=== PATIENT | male | born 1940 | race Caucasian/White ===

== ENCOUNTER 2024-04-12 16:04 | Inpatient (IN) | payer MEDICARE, SELFPAY ==
[2024-04-12] VITALS (17 sets, daily range): BP systolic 103–164; BP diastolic 48–93; BMI 35.5; BMI 33.8
[2024-04-12 07:36] LABS: % Basophils 0.4 % (0-2); % Eosinophils 0.4 % (0-6); % Immature Granulocytes 0.4 % (0-0.5); % Lymphocytes 14.9 % (20.5-51.1); % Monocytes 6.9 % (1.7-9.3); Absolute Lymphocytes 1.2 10^3/uL (1.2-3.4); Absolute Monocytes 0.6 10^3/uL (0.1-0.6); Absolute Neutrophils 6.2 10^3/uL (1.4-6.5); Hematocrit 41.5 % (39.0-52.0); Hemoglobin 14.3 g/dL (13.0-18.0); Mean Corp Hgb Conc. 34.5 g/dL (33.0-37.0); Mean Corpuscular Hgb 33.3 pg (27.0-31.0); Mean Corpuscular Volume 96.7 fL (80.0-94.0); Mean Platelet Volume 9.5 fL (7.4-10.4); Nucleated Red Blood Cells % 0 % (-); Platelet Count 208 10^3/uL (130-400); Red Blood Cell Count 4.29 10^6/uL (4.70-6.10); White Blood Cell Count 8.1 10^3/uL (4.8-10.8)
--- NOTE | 2024-04-12 07:47 | ED.GENMED ---
History of Present Illness
General
Chief Complaint: Abdominal Pain
Source: patient and records
Exam Limitations: none
Time Seen by Provider: 04/12/24 07:36
History of Present Illness
History of Present Illness:
83yoM with a history of hyperlipidemia, obesity, prior bowel obstruction presenting via EMS for evaluation of abdominal pain. Symptoms began around 7 PM last night shortly after eating dinner. He had pork chops with a leftover sauce that has been
in the fridge for a while. Patient reports pain in his epigastric/periumbilical region which radiates to the right side of the abdomen into the back. The pain has been constant since it began. He states it feels like he has to have a bowel
movement but is unable to. He is passing gas but 'very little.' He also reports nausea, dry heaving, and bloating. He is worried he may have a stomach bug. Patient took Mylanta, Pepto-Bismol, milk of magnesia last night without much relief. He
denies any fevers, chest pain, shortness of breath. Patient had a bowel obstruction in 2018 secondary to an incarcerated umbilical hernia which required surgery. He also has a history of a prior appendectomy.
Past History
Past History
ED Past Medical History: Other (Roseacea) and Other (obesity)
ED Past Surgical History: Appendectomy
Social History
Tobacco: Non-smoker
Alcohol: Occasional
Drug: None
Personal:
Living: with family
Employment: Employed
Family History
Family History: Other (reviewed and non-contributory)
Phy Exam
Physical Exam
Physical Exam:
Appears uncomfortable, non-toxic
General Physical Exam
General Presentation: mild distress
General age: appears stated age
General Skin: warm and dry
General Habitus: normal
General Mental: alert
ENT Exam
ENT Exam: normocephalic
Cardiovascular Exam
Cardiovascular Exam: regular rate/rhythm
Pulmonary Exam
Pulmonary Exam: lungs clear, no respiratory distress, no rales, no crackles and no rhonchi
Gastrointestinal Exam
Gastrointestinal Exam: other (Abdomen distended with decreased bowel sounds. Mild generalized tenderness throughout with moderate-severe pain in the periumbilical region. No guarding or rebound. No skin changes.)
Neurological Exam
Neurological Exam: alert
[place] Coma Scale
Eye Opening: Spontaneous
Verbal Response: Oriented
Motor Response: Obeys Commands
GCS Total Score: 15
Skin Exam
Skin Exam: normal color and warm/dry
Psychiatric Exam
Psychiatric Exam: normal mood/affect
Course
Orders/Labs/Results
Orders:
Orders
04/12/24 Breakfast
NPO
Allow oral meds: No
Allow clear liquids: No
NPO with Ice Chips: No
04/12/24 07:23
Complete Blood Count/With Diff Urgent
Comprehensive Metabolic Panel Urgent
Lactate Level [Lactic Acid] Urgent
Lipase Urgent
Comment: ADD ON
04/12/24 07:24
Troponin I Urgent
04/12/24 07:25
EKG [Electrocardiogram (*1)] Urgent
Reason for Study: Bradycardia / Tachycardia
EKG- Treatment ONCE
04/12/24 07:46
Add On- LAB Urgent
Tests Added?: lipase
CT Abd/pel W Iv And Oral Contr Urgent
Comment:
Reason For Exam: Periumbilical pain radiating to the R side/back
Urinalysis Reflex To Culture Urgent
0.9% Sodium Chloride 500 ml [Nss] 500 ml IV BOLUS
Iohexol [Omnipaque] See Protocol PO NOW STA
04/12/24 07:51
Ondansetron Injectable [Zofran] 4 mg IV NOW STA
04/12/24 08:05
HYDROmorphone [Dilaudid] 0.25 mg IV NOW STA
04/12/24 11:40
Consult Surgery [SURGICAL CONSULT] Urgent
Consulting Provider: Huber Anne
Was physician already notified: Yes
04/12/24 11:58
HYDROmorphone [Dilaudid] 0.25 mg IV NOW STA
Ondansetron Injectable [Zofran] 4 mg IV NOW STA
04/12/24 12:45
NG Tube [GI tube insertion- Treatment] ONCE
04/12/24 13:07
Admit Patient As Directed
Co-Sign Provider:
Level of Care: Inpatient admission
Assign to:: Medical/Surgical
Physician / Group: Omid
Diagnosis: SBO
Reason for Hospitalization: SBO
Expected length of stay greater than two midnights?: Yes
ELOS- Estimated Length of Stay in days: 3
I certify the patient meets the requirements for IP care: Yes
Code Status As Directed
Resuscitation Status: Full Code
Activity As Directed
Activity Level: Out of Bed-Early Mobility
Anti-embolism (KYLE) Hose As Directed
Type: Thigh high
Intake/ Output As Directed
Frequency: Per unit guidelines
Pneumatic Compression Sleeves As Directed
Type: Knee high
Vital Signs As Directed
Frequency: Per unit guidelines
PRN Pain Medication Management As Directed
May give lesser potent ordered pain med per pt: Yes
preference::
Protocol:: Medication orders for pain may be administered in a
manner that supports deferring to patient preference
when the pt is:
- Requesting an ordered lesser potent pain medication.
Least to most potent pain medications are defined
as: acetaminophen < NSAID < tramadol < opioids
(morphine, oxycodone, hydromorphone).
- Requesting a lesser dose of the same medication IF
ORDERED.
- Requesting a less intrusive route of administration
if both routes are prescribed by the provider (PO <
IV).
Rx Incentive Spirometry [RESP] Routine
Frequency: q1h while awake
# of times per hour: 10
DX Deep Vein Thrombosis Video Routine
04/12/24 13:12
Acetaminophen 1000MG/100Ml [Ofirmev] 1,000 mg in 100 ml IV Q6HPRN
Acetaminophen IV Indication:: Ileus/Delayed Bowel Func.
HYDROmorphone [Dilaudid] 0.5 mg IV Q2HPRN PRN
Ketorolac [Toradol] 15 mg IV Q6HPRN PRN
Ondansetron Injectable [Zofran] 4 mg IV Q6HPRN PRN
NG Tube [Gastrointestinal Tubes] As Directed
Type: [place] sump
To suction?: Yes
Type of suction: Low intermittent
Irrigate tube?: No
04/12/24 14:00
KCl 20 Meq/D5.45%Sodchl 1000ML [D5/0.45%NSS with KCL 20 MEQ] 20 meq in 1,000 ml IV 125 mls/hr
04/12/24 18:00
Enoxaparin Sodium [Lovenox] 40 mg SC QPM
Abnormal Lab Results
04/12/24
07:23
RBC 4.29 L 10^6/uL
(4.70-6.10)
MCV 96.7 H fL
(80.0-94.0)
MCH 33.3 H pg
(27.0-31.0)
Neutrophils % 77.0 H %
(42.2-75.2)
Lymphocytes % 14.9 L %
(20.5-51.1)
Glucose 141 H mg/dl
(70-99)
04/12/24 07:23
04/12/24 07:23
Vital Signs
Initial and Last Documented VS:
Initial Vital Signs
Temp Pulse BP Pulse Ox
97.9 F 50 164/69 98
04/12/24 07:11 04/12/24 07:11 04/12/24 07:11 04/12/24 07:11
Last Documented Vital Signs
Temp Pulse Resp BP Pulse Ox
97.9 F 59 14 160/70 97
04/12/24 07:11 04/12/24 11:00 04/12/24 11:00 04/12/24 11:00 04/12/24 11:00
MDM/Problems Addressed
Differential Diagnosis Includes:
83yoM here with abd pain that began after eating dinner last night. Also c/o nausea, dry heaving, and feeling like he has to have a BM. Hx of SBO. He appears uncomfortable but is non-toxic. Abdomen is distended with decreased bowel sounds.
Differential diagnosis includes but is not limited to: SBO, ileus, perforated viscous, pancreatitis, biliary colic, gastroenteritis, constipation
Initial ED plan: Check abdominal labs, lactate, troponin/EKG, and CT abdomen. IV Zofran, Dilaudid, and fluid bolus for symptoms.
*EKG
Interpreted by ED Provider?: Yes
EKG Intrepretation Date: 04/12/24
Heart Rate: 45
Rate: bradycardiac
Rhythm: sinus
[place]: normal axis
Interval: normal interval
QRS Pattern: normal QRS
Ischemia: other (nonspecific T wave flattening)
*Critical Care Note
Total Time (30-74mins, 75-104mins- exclusive of procedures): Not Applicable
Update Note
Update Note:
Labs overall unremarkable including normal white count and lactate. CT shows small bowel dilatation likely due to developing obstruction. Patient was evaluated by general surgeon, Dr. Anne. Surgery recommending NG tube and admission. Patient
admitted to the general surgery service for further management.
ED Attending Note
-
Portions of this chart may have been created with voice recognition software.� Occasional wrong word or��sound alike� substitutions may have occurred due to the inherent limitations of voice recognition software.
Discharge Plan
Departure
Patient Disposition: Admit
Date of Disposition: 04/12/24
Time of Disposition: 12:46
Presentation/result/management discussed w/ accepting MD/DO: Dr. Anne
Discharge Problem:
Small bowel obstruction
Prescriptions:
No Action
atorvastatin [Lipitor] 20 mg Tablet
20 mg PO QPM
magnesium hydroxide [Milk of Magnesia] 400 mg/5 mL Suspension
2,400 mg PO DAILYPRN PRN (Reason: constiaption)
tamsulosin [Flomax] 0.4 mg Capsule
0.4 mg PO QPM
bismuth subsalicylate [Pepto-Bismol] 262 mg/15 mL Suspension
524 mg PO DAILYPRN PRN (Reason: gerd)
alum-mag hydroxide-simeth [Mylanta] 200-200-20 mg/5 mL Suspension
10 ml PO DAILYPRN PRN (Reason: gerd)
zolpidem [Ambien] 10 mg Tablet
10 mg PO HS
Referrals:
PRIVATE,PHYSICIAN [Family Provider] -
Interventions
Interventions:
*Risk Screen - Suicide Last Done: 04/12/24 07:17
*General Assessment Last Done: 04/12/24 07:17
*Neglect/Abuse Screening Last Done: 04/12/24 07:17
ED- Fall Risk Assessment Last Done: 04/12/24 07:19
*ED COVID-19 Vaccine History Last Done: 04/12/24 07:14
YO-Fliweu-Ljlsxhwlze Assessment Last Done: 04/12/24 07:20
Discharge Date and Time
Print Language: YI
[2024-04-12] MEDS: NSS 500 IV (07:54)
[2024-04-12] MEDS: ZOFRAN 4 MG IV ×3 (07:58→22:52)
[2024-04-12] MEDS: OMNIPAQUE 50 ML PO (07:58)
[2024-04-12 08:06] LABS: ALT (SGPT) 28 U/L (0-50); AST (SGOT) 28 U/L (17-59); Albumin 4.4 g/dl (3.5-5.0); Alkaline Phosphatase 70 U/L (38-126); Blood Urea Nitrogen 17 mg/dl (9-20); Calcium 9.3 mg/dl (8.4-10.2); Carbon Dioxide 24 mmol/L (22-30); Chloride 105 mmol/L (98-107); Estimated Creatinine Clearance 68 ml/min; Glucose 141 mg/dl (70-99); Lipase 85 U/L (23-300); Potassium 4.4 mmol/L (3.5-5.1); Sodium 139 mmol/L (135-145); Total Bilirubin 0.8 mg/dl (0.2-1.3); Total Protein 7.1 g/dl (6.3-8.2); eGFR > 60.00
[2024-04-12 08:07] LABS: Lactic Acid 1.3 mmol/L (0.7-2.0)
[2024-04-12] MEDS: DILAUDID 0.25 MG IV ×2 (08:12→12:09)
[2024-04-12 08:44] LABS: Troponin I < 0.012 ng/ml
[2024-04-12] MEDS: D5/0.45%NSS with KCL 20 MEQ 1000 IV (15:21)
--- NOTE | 2024-04-12 16:10 | CON.GS ---
Consultation
-
Requesting Provider: Malini
Performing Provider: Omid
Reason for Consultation: SBO
Medical History
-
Chief Complaint: Abd pain
History of Present Illness:
83M with acute onset abdominal pain that began around 7 PM last night shortly after eating dinner. He had pork chops with a leftover sauce that has been in the fridge for a while. Pain localized to epigastric/periumbilical region with radiates to
the right side of the abdomen into the back. The pain has been constant and progressive. He feels the urge to defecate but nothing comes out. Endorses small flatus. Endorses n/v, dry heaving, and bloating. He took Mylanta, Pepto-Bismol, milk of
magnesia last night without much relief. He denies any fevers, chills.
Past Medical History
Past Medical History: Hypercholesterolemia and Other (BPH, obesity)
Past Surgical History: Other (2018 open repair umbilical hernia with 11cm ventralex patch for SBO a/w incarcerated UH with small bowel, no bowel resection)
Social History
Tobacco: Non-Smoker
Alcohol: Occasional
Personal:
Living: With Family
Employment: Employed ('I am very busy with several [employer]')
Family History
Family History: Reviewed & Noncontributory
Allergies / Home Medications
Allergy/AdvReac Type Severity Reaction Status Date / Time
No Known Allergies Allergy Verified 01/12/18 11:01
�Medication �Instructions �Recorded �Confirmed �Type
aluminum-mag hydroxide-simethicone 10 ml PO DAILYPRN PRN gerd 04/12/24 04/12/24 History
200 mg-200 mg-20 mg/5 mL oral susp
atorvastatin 20 mg tablet (Lipitor) 20 mg PO QPM 04/12/24 04/12/24 History
bismuth subsalicylate 262 mg/15 mL 524 mg PO DAILYPRN PRN gerd 04/12/24 04/12/24 History
oral suspension (Pepto-Bismol)
magnesium hydroxide 400 mg/5 mL 2,400 mg PO DAILYPRN PRN 04/12/24 04/12/24 History
oral suspension (Milk of Magnesia) constiaption
tamsulosin 0.4 mg capsule (Flomax) 0.4 mg PO QPM 04/12/24 04/12/24 History
zolpidem 10 mg tablet (Ambien) 10 mg PO HS 04/12/24 04/12/24 History
Review of Systems
-
A 10 point review of systems was completed, and was negative except as per HPI.
Physical Exam
Vital Signs
Temp Pulse Resp BP Pulse Ox
97.9 F 59 14 160/70 97
04/12/24 07:11 04/12/24 11:00 04/12/24 11:00 04/12/24 11:00 04/12/24 11:00
04/11/24 04/12/24 04/13/24
06:59 06:59 06:59
Actual Weight 106 kg
Body Mass Index (BMI) 35.5
Lab Results
04/12/24 07:23
04/12/24 07:23
WBC 8.1 10^3/uL (4.8-10.8) 04/12/24 07:23
Hgb 14.3 g/dL (13.0-18.0) 04/12/24 07:23
Hct 41.5 % (39.0-52.0) 04/12/24 07:23
Plt Count 208 10^3/uL (130-400) 04/12/24 07:23
Abs Immat Gran (auto) 0.0 10^3/uL (0-0.05) 04/12/24 07:23
Neutrophils % 77.0 % (42.2-75.2) H 04/12/24 07:23
Physical Exam
General: Well Developed, Well Nourished and No Apparent Distress
GI: Soft, Tender (minimal ttp diffusely without any increase around the umbilicus), Distended (soft, tympany) and Other (no hernia recurrence )
Skin: Warm and Dry
Neuro: AO x 3
Psych: Calm
Data Reviewed
-
CT Scan: Image Personally Visualized and interpreted, Report Reviewed by me and Discussed with Patient
Labs: Labs Reviewed by me and Discussed with Patient
Old Records: Reviewed
Assessment / Plan
-
83M with pSBO after eating suspicious food
AFVSS, passing flatus, nausea persists
On exam minimal ttp, non focal, no guarding
No leukocytosis
CT with dilated proximal sb and apparent transition point at anterior gerry-umbilical region abutting the location of prior mesh, no pneumatosis, no PV gas, no free air
Plan:
Admit to surgery service
NPO/IVF/NGT
Stool Cx if sample is produced
DVT ppx
Ambulate
PRN pain meds and anti-emetics
Trial expectant mgmt considering mild exam, clinical stability, question of possible acute gastroenteritis, and partial nature of obstruction
[2024-04-12] MEDS: LOVENOX 40 MG SC (18:33)
[2024-04-12] MEDS: DILAUDID 0.5 MG IV (22:50)
[2024-04-12 23:22] LABS: Urine Albumin 1+ (Neg - Trace); Urine Bilirubin Negative (Negative); Urine Character Clear (Clear); Urine Color Yellow; Urine Glucose Negative (Negative); Urine Ketone Negative (Negative); Urine Leukocyte Negative (Negative); Urine Nitrite Negative (Negative); Urine Occult Blood Negative (Negative); Urine Urobilinogen Negative (Neg - 1+)
--- NOTE | 2024-04-12 23:40 | PTCARENOTE ---
Received pt from ED into room 2138. Pt able to ambulate to bed with stand by assist. Pt AAOx3. VSS. NGT in R nare connected to low intermittent suction. Abdominal tenderness and nausea, rating pain /10. PRN medication administered, see MAY. D5/0.45
NSS with KCL 20 meq running at 125 ml/hr. Pt educated on KYLE stockings and SCDs, refused. See proper documentation for full assessment. Pt oriented to room, resting comfortably in bed with call simpson in reach.
[2024-04-13 01:20] LABS: Urine Bacteria Moderate (Negative); Urine Mucus Many; Urine Squamous Cell 0-2 /LPF (Few)
[2024-04-13] MEDS: D5/0.45%NSS with KCL 20 MEQ 1000 IV ×3 (03:00→22:38)
[2024-04-13 07:23] VITALS: BP 134/62
--- NOTE | 2024-04-13 08:57 | W.PN.GS2 ---
Today's Communication / Plan
-
`
Assessment / Plan
-
Assessment: 83 y/o male admitted with SBO - likely secondary to adhesions in setting of prior UHR with mesh and dietary indiscretion
AFVSS
NGT with nonbilious contents and not much output overnight
appears to be clinically improving; soft exam, nontender and with flatus
Plan: Pulled NGT - okay for clear liquid diet today
AM labs pending
Subjective Data
-
Date of Service: April 13, 2024
pt seen and examined
feeling better
no nausea/vomiting, no abdominal pain
no longer feels bloating
passing flatus
Objective Data
-
Intake and Output
04/12/24 04/13/24 04/14/24
06:59 06:59 06:59
Intake Total 1175 / 1175
Output Total 485 / 485
Balance 690 / 690
Intake:
Oral fluids 50 / 50
IV fluids (Total) 1125 / 1125
Amount instilled into GI Tube ( 0 / 0
Total)
[place] Sump 0 / 0
Output:
Gastrointestinal tube output ( 200 / 200
Total)
[place] Sump 200 / 200
Urine, Voided 285 / 285
Vital Signs
Temp Pulse Resp BP Pulse Ox
97.8 F 52 18 134/62 96
04/13/24 07:23 04/13/24 07:23 04/13/24 07:23 04/13/24 07:23 04/13/24 07:23
Calcium 9.3 mg/dl (8.4-10.2) 04/12/24 07:23
Total Bilirubin 0.8 mg/dl (0.2-1.3) 04/12/24 07:23
AST 28 U/L (17-59) 04/12/24 07:23
ALT 28 U/L (0-50) 04/12/24 07:23
Alkaline Phosphatase 70 U/L (38-126) 04/12/24 07:23
Total Protein 7.1 g/dl (6.3-8.2) 04/12/24 07:23
Albumin 4.4 g/dl (3.5-5.0) 04/12/24 07:23
Physical Exam
-
NAD AAOx3
Patient has a alcantara catheter: No
Patient has a central line: No
[2024-04-13 09:14] LABS: Hemoglobin 13.2 g/dL (13.0-18.0); Mean Corpuscular Hgb 33.6 pg (27.0-31.0); Mean Corpuscular Volume 101.8 fL (80.0-94.0); Mean Platelet Volume 9.1 fL (7.4-10.4); Platelet Count 179 10^3/uL (130-400); Red Blood Cell Count 3.93 10^6/uL (4.70-6.10); Red Cell Dist. Width 13.1 % (11.5-14.5); White Blood Cell Count 5.5 10^3/uL (4.8-10.8)
[2024-04-13] MEDS: CHLORASEPTIC/SORE THROAT SPRAY 1 SPRAY PO (09:46)
[2024-04-13 11:37] LABS: Blood Urea Nitrogen 12 mg/dl (9-20); Carbon Dioxide 29 mmol/L (22-30); Chloride 104 mmol/L (98-107); Estimated Creatinine Clearance 83 ml/min; Glucose 104 mg/dl (70-99); Potassium 4.5 mmol/L (3.5-5.1); Sodium 139 mmol/L (135-145); eGFR > 60.00
--- NOTE | 2024-04-13 11:46 | CM ---
Reviewed the chart notes and spoke with the patient at the bedside. The patient resides alone in a two story home with four steps to enter. The patient reports no DME/VN/SNF in the past. The patient has two housekeepers daily in the home. The
patient confirmed his pharmacy of choice is the [facility] and PCP is Dr. Dewayne Tian. Patient's diet upgraded to clears. CM continues to be available to patient/family and is monitoring medical plan for needs at discharge.
Plan: Discharge to home when medically stable.
--- NOTE | 2024-04-13 14:44 | W.PN.UPDATE ---
Update Note
Progress Note Update
Patient seen in follow-up.
Tolerating liquids. Denies nausea, denies vomiting, denies return of abdominal pain or distention.
Occasional bit of flatus passage. No bowel movements.
Continue with clear liquids and supportive care
[2024-04-13 15:25] VITALS: BP 140/75
[2024-04-13] MEDS: LOVENOX 40 MG SC (17:52)
[2024-04-13] MEDS: FLOMAX 0.4 MG PO (17:52)
[2024-04-13] MEDS: D5/0.45%NSS with KCL 20 MEQ IV (22:38)
[2024-04-13] MEDS: AMBIEN 10 MG PO (22:43)
[2024-04-13 23:42] VITALS: BP 140/64
[2024-04-14 07:21] VITALS: BP 130/59
[2024-04-14 07:53] LABS: Hematocrit 36.5 % (39.0-52.0); Hemoglobin 12.4 g/dL (13.0-18.0); Mean Corpuscular Hgb 33.9 pg (27.0-31.0); Mean Corpuscular Volume 99.7 fL (80.0-94.0); Mean Platelet Volume 9.5 fL (7.4-10.4); Platelet Count 177 10^3/uL (130-400); Red Blood Cell Count 3.66 10^6/uL (4.70-6.10); Red Cell Dist. Width 12.6 % (11.5-14.5); White Blood Cell Count 4.3 10^3/uL (4.8-10.8)
--- NOTE | 2024-04-14 08:14 | W.PN.GS2 ---
Addendum entered and electronically signed by Austin Gao MD 04/14/24 08:34:
Patient seen and examined with SENIOR BENEFITS MANAGER. Agree with documented progress note
Feeling better and essentially at baseline. Denies nausea, denies vomiting. No further abdominal bloating, distention or pain
Passing flatus regularly, no BM yet
AFVSS
NAD AAOx3
ABD: Softly protuberant but not distended or tympanitic. No tenderness on palpation
A/P: 83-year-old male with clinically resolving PSBO likely secondary to adhesions
Advance to low residue diet
If tolerates patient for DC home in p.m.
Discussed/counseled regarding low residue diet for the next 1 to 2 weeks and ongoing monitoring of obstructive symptoms as an outpatient
Discussed bowel regiment with MiraLAX if no BM in the next 24 hours
Original Note:
Today's Communication / Plan
-
advance diet
Assessment / Plan
-
Assessment: 83 y/o male admitted with SBO - likely secondary to adhesions in setting of prior UHR with mesh and dietary indiscretion
AFVSS
NGT out on 04/13, tolerating clears
continues to clinically improve; soft exam, nontender and with flatus
No leukocytosis
BMP pending
Plan:
Advance to LRD
D/C IVF
Continue home meds
Lovenox for VTE ppx
Tentative d/c later today if tolerating diet
Subjective Data
-
Date of Service: April 14, 2024
Patient seen and examined at bedside with
Objective Data
-
Intake and Output
04/13/24 04/14/24 04/15/24
06:59 06:59 06:59
Intake Total 1175 / 1175 3255 / 3255
Output Total 485 / 485 100 / 100
Balance 690 / 690 3155 / 3155
Intake:
Oral fluids 50 / 50 1080 / 1080
IV fluids (Total) 1125 / 1125 2175 / 2175
Amount instilled into GI Tube ( 0 / 0
Total)
[place] Sump 0 / 0
Output:
Gastrointestinal tube output ( 200 / 200
Total)
[place] Sump 200 / 200
Urine, Voided 285 / 285 100 / 100
Other:
Number of approximated MODERATE 3
amounts of urine
Vital Signs
Temp Pulse Resp BP Pulse Ox
97.7 F 48 19 140/64 98
04/13/24 23:42 04/13/24 23:42 04/13/24 23:42 04/13/24 23:42 04/13/24 23:42
Lab Results
04/14/24 07:13
Calcium 8.0 mg/dl (8.4-10.2) L 04/13/24 09:05
Total Bilirubin 0.8 mg/dl (0.2-1.3) 04/12/24 07:23
AST 28 U/L (17-59) 04/12/24 07:23
ALT 28 U/L (0-50) 04/12/24 07:23
Alkaline Phosphatase 70 U/L (38-126) 04/12/24 07:23
Total Protein 7.1 g/dl (6.3-8.2) 04/12/24 07:23
Albumin 4.4 g/dl (3.5-5.0) 04/12/24 07:23
Physical Exam
-
NAD AAOx3
ABD soft, nt, nd
Patient has a alcantara catheter: No
Patient has a central line: No
[2024-04-14 08:28] LABS: Blood Urea Nitrogen 9 mg/dl (9-20); Calcium 7.7 mg/dl (8.4-10.2); Carbon Dioxide 26 mmol/L (22-30); Chloride 105 mmol/L (98-107); Estimated Creatinine Clearance 83 ml/min; Glucose 114 mg/dl (70-99); Potassium 4.6 mmol/L (3.5-5.1); Sodium 137 mmol/L (135-145); eGFR > 60.00
[2024-04-14] MEDS: D5/0.45%NSS with KCL 20 MEQ IV (09:34)
--- NOTE | 2024-04-14 13:32 | W.DS.TRANS ---
Addendum entered and electronically signed by JC Vogel 04/14/24 15:50:
dictated #[id number]
Original Note:
DC Summary - Hand Compositor
-
Discharge Instructions:
Discharge Diagnosis/Procedures Small bowel obstruction
Diet Low Fiber
Activity As tolerated
Driving Restrictions As prior to admission
Bathing Restrictions OK to Shower
Instructions: Low-fiber diet
Stand-Alone Forms:
Changes to Home Medications: No
Discharge Medications:
DC Medications w/original date entered in [employer]
aluminum-mag hydroxide-simethicone 200 mg-200 mg-20 mg/5 mL oral susp 10 ml PO DAILYPRN PRN gerd 04/12/24
atorvastatin 20 mg tablet (Lipitor) 20 mg PO QPM High Cholesterol 04/12/24
tamsulosin 0.4 mg capsule (Flomax) 0.4 mg PO QPM Urinary Issue 04/12/24
zolpidem 10 mg tablet (Ambien) 10 mg PO HS Sleep 04/12/24
polyethylene glycol 3350 17 gram oral powder packet 17 grams PO DAILYPRN PRN constipation #1 packet 04/14/24
Home Medication Changes
Pending Results: No
[2024-04-14 14:02] VITALS: BP 149/61
--- NOTE | 2024-04-14 14:07 | CM ---
Reviewed the chart notes and spoke with the patient at the bedside. IMM reviewed. Patient's brother to provide transportation home. CM continues to be available to patient/family and is monitoring medical plan for needs at discharge.
Plan: Discharge to home today. No needs.
== END 2024-04-14 14:38 | disposition home or self-care (01) | DRG 390 ==
LOC: 2 NORTH 16:04
PROVIDERS: Physician Assistant; Surgery; ADMITTING PHYSICIAN Surgery; EMERGENCY PHYSICIAN Emergency Medicine
PROC: 0D9670Z Drainage of Stomach with Drainage Device, Via Natural or Artificial Opening (ICD-10-PCS; 2024-04-12)
DX: K56.609 Unspecified intestinal obstruction, unspecified as to partial versus complete obstruction (principal); Z90.49 Acquired absence of other specified parts of digestive tract
CPT/HCPCS: 43752; 74177; 80048; 80053; 81003; 81015; 83605; 83690; 84484; 85025; 85027; 87045; 87046; 87070; 87086; 87147; 87427; 93005; 96361; 96374; 96375; 96376; 99285; Q9967